=== PATIENT | female | born 1955 ===

== ENCOUNTER 2017-02-26 08:03 | Inpatient (IN) | payer OTHER ==
[~2017-02-26] VITALS: Ht 157.5 cm; Wt 72.2 kg
[~2017-02-26 08:03] MED LIST: AMOCLA875 PO; ATOR40TA PO; Bactrim Ds Tab1 EACH PO; CEPH500 PO; Cipro500 MG PO; Flagyl500 MG PO; LAVAP17G PO; LEVFLO500 PO; METR500 PO; Norco 5-325 Ta1 EACH PO; Norco 7.5-3251 EACH PO; Pyridium200 MG PO; Zofran Odt4 MG SL
[2017-02-26 08:57] LABS: Source, Urine Clean Catch
[2017-02-26 09:08] LABS: Bilirubin, Urine Neg (Neg); Blood, Urine 4+ (Neg); Glucose Qualitative, Urine Neg (Neg); Ketones, Urine 1+ (Neg); Leukocyte Esterase, Urine 3+ (Neg); Nitrite, Urine Pos (Neg); Protein, Urine 2+ (Neg); Specific Gravity, Urine 1.015 (1.003-1.022); Urobilinogen, Urine NORM (Normal)
[2017-02-26 09:23] LABS: Appearance, Urine Clear (Clear); Color, Urine Amber (P-Yellow)
[2017-02-26 09:38] LABS: White Blood Cells, Urine TNTC /hpf (0-5)
[2017-02-26 09:39] LABS: Bacteria Many /hpf; Squamous Epithelial Cells Few /hpf (Few)
[2017-02-26 09:46] LABS: BASOPHILS ABSOLUTE AUTO 0.03 K/mm3 (0.00-0.23); BASOPHILS PERCENT AUTO 0 % (0-2); EOSINOPHILS ABSOLUTE AUTO 0.02 K/mm3 (0.00-0.68); EOSINOPHILS PERCENT AUTO 0 % (0-6); Hematocrit 43.5 % (33.0-51.0); Hemoglobin 14.8 g/dL (11.5-16.0); IMMATURE GRAN ABSOLUTE AUTO 0.05 K/mm3 (0.00-0.10); IMMATURE GRAN PERCENT AUTO 0 % (0-1); LYMPHOCYTES ABSOLUTE AUTO 1.77 K/mm3 (0.84-5.20); LYMPHOCYTES PERCENT AUTO 13 % (21-46); MONOCYTES ABSOLUTE AUTO 1.88 K/mm3 (0.16-1.47); MONOCYTES PERCENT AUTO 14 % (4-13); Mean Corpuscular HGB 33.4 pg (26.0-34.0); Mean Corpuscular Volume 98 fL (80-100); Mean Platelet Volume 9.9 fL (9.1-12.4); NEUTROPHILS ABSOLUTE AUTO 9.92 K/mm3 (1.96-9.15); NEUTROPHILS PERCENT AUTO 73 % (41-73); Platelet Count 193 K/mm3 (150-400); RDW Coefficient Variation 13.3 % (11.7-14.2); Red Blood Cell Count 4.43 M/mm3 (3.80-5.20); White Blood Cell Count 13.67 K/mm3 (4.00-11.30)
[2017-02-26 09:58] LABS: Alanine Aminotransfer (ALT/SGP 30 U/L (12-78); Albumin, Blood 3.7 g/dL (3.4-5.0); Albumin/Globulin Ratio 0.8 (0.8-1.8); Alk Phos 87 U/L (50-136); Anion Gap 10 mmol/L (6-16); Aspartate Aminotrans (AST/SGOT 28 U/L (12-37); Bilirubin, Total 1.4 mg/dL (0.1-1.0); Blood Urea Nitrogen 8 mg/dL (8-24); Bun/Creatinine Ratio 15.7 (12.0-20.0); CO2, Blood 24 mmol/L (21-32); Calcium, Blood 8.5 mg/dL (8.5-10.1); Chloride, Blood 105 mmol/L (98-108); Creatinine, Blood 0.51 mg/dL (0.40-1.00); Globulin, Blood 4.7 g/dL (2.2-4.0); Glomerular Filtration Rate >60 (60-); Glucose, Blood 130 mg/dL (70-99); Potassium, Blood 3.4 mmol/L (3.5-5.5); Sodium, Blood 139 mmol/L (136-145); Total Protein, Blood 8.4 g/dL (6.4-8.2)
[2017-02-27 05:12] LABS: Hematocrit 41.1 % (33.0-51.0); Hemoglobin 13.6 g/dL (11.5-16.0); Mean Corpuscular HGB Conc 33.1 g/dL (31.5-36.5); Mean Corpuscular Volume 100 fL (80-100); Platelet Count 171 K/mm3 (150-400); RDW Coefficient Variation 13.7 % (11.7-14.2); RDW Standard Deviation 50.5 fL (35.1-46.3); Red Blood Cell Count 4.12 M/mm3 (3.80-5.20); White Blood Cell Count 10.81 K/mm3 (4.00-11.30)
[2017-02-27 05:47] LABS: Very Low Density Lipoprot Chol 30 mg/dL (6-32)
[2017-02-27 05:51] LABS: Anion Gap 7 mmol/L (6-16); Blood Urea Nitrogen 9 mg/dL (8-24); Bun/Creatinine Ratio 18.8 (12.0-20.0); CO2, Blood 23 mmol/L (21-32); Calcium, Blood 7.8 mg/dL (8.5-10.1); Chloride, Blood 109 mmol/L (98-108); Creatinine, Blood 0.48 mg/dL (0.40-1.00); Glomerular Filtration Rate >60 (60-); Glucose, Blood 116 mg/dL (70-99); HDL Cholesterol 32 mg/dL (>39); Potassium, Blood 3.8 mmol/L (3.5-5.5); Sodium, Blood 139 mmol/L (136-145); Triglycerides 150 mg/dL (30-160)
[2017-02-27 05:58] LABS: CHOL/HDL RATIO 5.5; Cholesterol 176 mg/dL (50-200); LDL/HDL RATIO 3.6; Low Density Lipoprotein Chol 114 mg/dL (0-110)
[2017-02-28 05:41] LABS: Hematocrit 39.4 % (33.0-51.0); Hemoglobin 13.3 g/dL (11.5-16.0); Mean Corpuscular HGB 33.4 pg (26.0-34.0); Mean Corpuscular HGB Conc 33.8 g/dL (31.5-36.5); Mean Corpuscular Volume 99 fL (80-100); Platelet Count 189 K/mm3 (150-400); RDW Coefficient Variation 13.3 % (11.7-14.2); RDW Standard Deviation 48.2 fL (35.1-46.3); Red Blood Cell Count 3.98 M/mm3 (3.80-5.20); White Blood Cell Count 7.21 K/mm3 (4.00-11.30)
[2017-02-28 06:01] LABS: Anion Gap 8 mmol/L (6-16); Blood Urea Nitrogen 8 mg/dL (8-24); Bun/Creatinine Ratio 19.4 (12.0-20.0); CO2, Blood 23 mmol/L (21-32); Calcium, Blood 8.5 mg/dL (8.5-10.1); Chloride, Blood 110 mmol/L (98-108); Creatinine, Blood 0.41 mg/dL (0.40-1.00); Glomerular Filtration Rate >60 (60-); Glucose, Blood 100 mg/dL (70-99); Potassium, Blood 3.8 mmol/L (3.5-5.5); Sodium, Blood 141 mmol/L (136-145)
[2017-03-01] MEDS ORDERED: GAVILAX17 GM PO (12:21)
[2017-03-01] MEDS ORDERED: CEFU500T30 PO (12:22)
[2017-03-01] MEDS ORDERED: IBUP400 PO (12:22)
[2017-03-01] MEDS ORDERED: ACIDOPHILUS1 EAC1 PO (12:23)
[2017-09-04] MEDS ORDERED: HYDR1TAB94 PO (10:24)
[2017-09-04] MEDS ORDERED: Metamucil Smooth1 EA PO (10:25)
[2017-10-24] MEDS ORDERED: Miralax17 GM PO (15:58)
[2017-11-05] MEDS ORDERED: METAMUCIL (13:12)
[2017-11-10] MEDS ORDERED: HYDR1TAB94 PO (11:40)
== END 2017-03-01 15:03 | disposition home or self-care (01) | DRG 872 ==
LOC: ER 08:03 → MEDS 13:50 → ENPENDDIS 03-01 10:00 → MEDS 03-01 15:03
PROVIDERS: Emergency Medicine; Internal Medicine
DX: A41.51 Sepsis due to Escherichia coli [E. coli] (principal); K76.0 Fatty (change of) liver, not elsewhere classified; N10 Acute pyelonephritis; E78.5 Hyperlipidemia, unspecified; K21.9 Gastro-esophageal reflux disease without esophagitis; K57.30 Diverticulosis of large intestine without perforation or abscess without bleeding; E87.6 Hypokalemia; Z85.3 Personal history of malignant neoplasm of breast; Z90.11 Acquired absence of right breast and nipple; Z86.010 Personal history of colon polyps
CPT/HCPCS: 36415; 74176; 80048; 80053; 80061; 81001; 83605; 83690; 85025; 85027; 87040; 87077; 87086; 87186; 96361; 96365; 96375; 99285; J0696; J1170; J1650; J1885; J2405; J7030

== ENCOUNTER 2017-03-13 09:45 | Emergency (ER) | payer OTHER ==
[~2017-03-13] VITALS: Ht 157.5 cm; Wt 72.6 kg
[~2017-03-13 09:45] MED LIST changes: +ACIDOPHILUS1 EAC1 PO; +CEFU500T30 PO; +GAVILAX17 GM PO; +IBUP400 PO
[2017-03-13 10:33] LABS: Source, Urine Clean Catch
[2017-03-13 10:36] LABS: Bilirubin, Urine Neg (Neg); Blood, Urine 1+ (Neg); Glucose Qualitative, Urine Neg (Neg); Ketones, Urine Neg (Neg); Leukocyte Esterase, Urine 1+ (Neg); Nitrite, Urine Neg (Neg); Protein, Urine 1+ (Neg); Urobilinogen, Urine NORM (Normal)
[2017-03-13 10:48] LABS: Appearance, Urine Clear (Clear); Color, Urine Yellow (P-Yellow)
[2017-03-13 10:51] LABS: Bacteria Not Seen /hpf; Calcium Oxalate Crystals Many /hpf; Red Blood Cells, Urine Not Seen /hpf (0-2); Squamous Epithelial Cells Few /hpf (Few); White Blood Cells, Urine 0-2 /hpf (0-5)
[2017-03-13 10:52] LABS: Mucus Light (0-Heavy)
[2017-03-13 11:17] LABS: BASOPHILS ABSOLUTE AUTO 0.06 K/mm3 (0.00-0.23); BASOPHILS PERCENT AUTO 1 % (0-2); EOSINOPHILS ABSOLUTE AUTO 0.17 K/mm3 (0.00-0.68); EOSINOPHILS PERCENT AUTO 3 % (0-6); Hematocrit 40.7 % (33.0-51.0); IMMATURE GRAN ABSOLUTE AUTO 0.02 K/mm3 (0.00-0.10); IMMATURE GRAN PERCENT AUTO 0 % (0-1); LYMPHOCYTES ABSOLUTE AUTO 2.08 K/mm3 (0.84-5.20); LYMPHOCYTES PERCENT AUTO 38 % (21-46); MONOCYTES PERCENT AUTO 9 % (4-13); Mean Corpuscular HGB 33.2 pg (26.0-34.0); Mean Corpuscular HGB Conc 34.4 g/dL (31.5-36.5); Mean Platelet Volume 9.4 fL (9.1-12.4); NEUTROPHILS ABSOLUTE AUTO 2.63 K/mm3 (1.96-9.15); NEUTROPHILS PERCENT AUTO 48 % (41-73); Platelet Count 261 K/mm3 (150-400); RDW Coefficient Variation 13.2 % (11.7-14.2); RDW Standard Deviation 47.2 fL (35.1-46.3); Red Blood Cell Count 4.22 M/mm3 (3.80-5.20); White Blood Cell Count 5.46 K/mm3 (4.00-11.30)
[2017-03-13 11:22] LABS: Mean Corpuscular Volume 96 fL (80-100)
[2017-03-13 11:39] LABS: Alanine Aminotransfer (ALT/SGP 60 U/L (12-78); Albumin, Blood 3.6 g/dL (3.4-5.0); Albumin/Globulin Ratio 0.8 (0.8-1.8); Alk Phos 119 U/L (50-136); Anion Gap 8 mmol/L (6-16); Aspartate Aminotrans (AST/SGOT 70 U/L (12-37); Bilirubin, Total 0.5 mg/dL (0.1-1.0); Blood Urea Nitrogen 11 mg/dL (8-24); Bun/Creatinine Ratio 24.2 (12.0-20.0); CO2, Blood 24 mmol/L (21-32); Calcium, Blood 8.8 mg/dL (8.5-10.1); Chloride, Blood 109 mmol/L (98-108); Creatinine, Blood 0.45 mg/dL (0.40-1.00); Globulin, Blood 4.5 g/dL (2.2-4.0); Glomerular Filtration Rate >60 (60-); Glucose, Blood 106 mg/dL (70-99); Potassium, Blood 3.7 mmol/L (3.5-5.5); Sodium, Blood 141 mmol/L (136-145); Total Protein, Blood 8.1 g/dL (6.4-8.2)
[2017-09-04] MEDS ORDERED: HYDR1TAB94 PO (10:24)
[2017-09-04] MEDS ORDERED: Metamucil Smooth1 EA PO (10:25)
[2017-10-24] MEDS ORDERED: Miralax17 GM PO (15:58)
[2017-11-05] MEDS ORDERED: METAMUCIL (13:12)
[2017-11-10] MEDS ORDERED: HYDR1TAB94 PO (11:40)
== END 2017-03-13 13:51 | disposition home or self-care (01) ==
LOC: ER 09:45
PROVIDERS: Emergency Medicine
DX: R10.32 Left lower quadrant pain (principal); R10.31 Right lower quadrant pain; E78.00 Pure hypercholesterolemia, unspecified
CPT/HCPCS: 36415; 74176; 80053; 81001; 83690; 85025; 87077; 87086; 87186; 99284

== ENCOUNTER 2017-04-02 11:26 | Day surgery (SDC) | payer OTHER ==
[~2017-04-02] VITALS: Ht 157.5 cm; Wt 72.6 kg
[2017-04-03 04:15] LABS: BASOPHILS ABSOLUTE AUTO 0.02 K/mm3 (0.00-0.23); BASOPHILS PERCENT AUTO 0 % (0-2); EOSINOPHILS PERCENT AUTO 0 % (0-6); Hematocrit 36.6 % (33.0-51.0); Hemoglobin 12.3 g/dL (11.5-16.0); IMMATURE GRAN ABSOLUTE AUTO 0.03 K/mm3 (0.00-0.10); IMMATURE GRAN PERCENT AUTO 0 % (0-1); LYMPHOCYTES ABSOLUTE AUTO 1.48 K/mm3 (0.84-5.20); LYMPHOCYTES PERCENT AUTO 17 % (21-46); MONOCYTES ABSOLUTE AUTO 0.65 K/mm3 (0.16-1.47); MONOCYTES PERCENT AUTO 7 % (4-13); Mean Corpuscular HGB 32.8 pg (26.0-34.0); Mean Corpuscular HGB Conc 33.6 g/dL (31.5-36.5); Mean Corpuscular Volume 98 fL (80-100); Mean Platelet Volume 10.4 fL (9.1-12.4); NEUTROPHILS ABSOLUTE AUTO 6.74 K/mm3 (1.96-9.15); NEUTROPHILS PERCENT AUTO 76 % (41-73); Platelet Count 210 K/mm3 (150-400); RDW Coefficient Variation 13.1 % (11.7-14.2); RDW Standard Deviation 46.8 fL (35.1-46.3); Red Blood Cell Count 3.75 M/mm3 (3.80-5.20); White Blood Cell Count 8.92 K/mm3 (4.00-11.30)
[2017-04-03 04:37] LABS: Anion Gap 8 mmol/L (6-16); Blood Urea Nitrogen 14 mg/dL (8-24); Bun/Creatinine Ratio 20.5 (12.0-20.0); CO2, Blood 25 mmol/L (21-32); Calcium, Blood 8.5 mg/dL (8.5-10.1); Chloride, Blood 106 mmol/L (98-108); Creatinine, Blood 0.68 mg/dL (0.40-1.00); Glomerular Filtration Rate >60 (60-); Glucose, Blood 138 mg/dL (70-99); Sodium, Blood 139 mmol/L (136-145)
[2017-04-03] MEDS ORDERED: ENOX40I SC (09:45)
[2017-04-03] MEDS ORDERED: OXYC5 PO (09:45)
[2017-04-03] MEDS ORDERED: PROM25 PO (09:46)
[2017-09-04] MEDS ORDERED: HYDR1TAB94 PO (10:24)
[2017-09-04] MEDS ORDERED: Metamucil Smooth1 EA PO (10:25)
[2017-10-24] MEDS ORDERED: Miralax17 GM PO (15:58)
[2017-11-05] MEDS ORDERED: METAMUCIL (13:12)
[2017-11-10] MEDS ORDERED: HYDR1TAB94 PO (11:40)
== END 2017-04-03 15:33 | disposition home or self-care (01) ==
LOC: PRE IP 11:26 → ORSCMMR 11:26 → SURS 11:26 → PRE IP 13:30 → EDSTATUS 16:30 → PRE IP 16:30 → SURS 17:11 → ORSCMMR 04-03 15:33
PROVIDERS: Orthopaedic Surgery
PROC: 0SRC0J9 Replacement of Right Knee Joint with Synthetic Substitute, Cemented, Open Approach (ICD-10-PCS; principal; 2017-04-02 13:30)
DX: M17.0 Bilateral primary osteoarthritis of knee (principal)
CPT/HCPCS: 36415; 73560-RT; 80048; 83735; 85025; 88300; 97110; 97116; 97161; 97530; C1713; C1776; G8978; G8979; J0171; J0690; J0735; J1100; J1650; J1885; J2250; J2405; J2795; J3010; J7120

== ENCOUNTER 2017-05-26 07:18 | Day surgery (SDC) | payer OTHER ==
[~2017-05-26] VITALS: Ht 157.5 cm; Wt 70.6 kg
[~2017-05-26 07:18] MED LIST changes: +ENOX40I SC; +OXYC5 PO; +PROM25 PO
== END 2017-05-26 11:51 | disposition home or self-care (01) ==
LOC: ORSCSDS 07:18
PROVIDERS: Orthopaedic Surgery
PROC: 0SSCXZZ Reposition Right Knee Joint, External Approach (ICD-10-PCS; principal; 2017-05-26 08:45)
DX: M25.661 Stiffness of right knee, not elsewhere classified (principal); I10 Essential (primary) hypertension; G47.33 Obstructive sleep apnea (adult) (pediatric); Z96.651 Presence of right artificial knee joint; Z79.899 Other long term (current) drug therapy
CPT/HCPCS: J0690; J1100; J1885; J2250; J2405; J3010; J7120

== ENCOUNTER 2017-09-08 10:47 | Emergency (ER) | payer OTHER ==
[~2017-09-08] VITALS: Ht 157.5 cm; Wt 72.6 kg
[~2017-09-08 10:47] MED LIST changes: +HYDR1TAB94 PO; +Metamucil Smooth1 EA PO
[2017-09-08 11:37] LABS: BASOPHILS ABSOLUTE AUTO 0.05 K/mm3 (0.00-0.23); BASOPHILS PERCENT AUTO 1 % (0-2); EOSINOPHILS ABSOLUTE AUTO 0.25 K/mm3 (0.00-0.68); EOSINOPHILS PERCENT AUTO 5 % (0-6); Hematocrit 42.4 % (33.0-51.0); Hemoglobin 14.4 g/dL (11.5-16.0); IMMATURE GRAN ABSOLUTE AUTO 0.01 K/mm3 (0.00-0.10); IMMATURE GRAN PERCENT AUTO 0 % (0-1); LYMPHOCYTES ABSOLUTE AUTO 2.27 K/mm3 (0.84-5.20); LYMPHOCYTES PERCENT AUTO 42 % (21-46); MONOCYTES ABSOLUTE AUTO 0.56 K/mm3 (0.16-1.47); MONOCYTES PERCENT AUTO 10 % (4-13); Mean Corpuscular HGB 32.4 pg (26.0-34.0); Mean Corpuscular Volume 96 fL (80-100); Mean Platelet Volume 9.3 fL (9.1-12.4); NEUTROPHILS ABSOLUTE AUTO 2.23 K/mm3 (1.96-9.15); NEUTROPHILS PERCENT AUTO 42 % (41-73); Platelet Count 243 K/mm3 (150-400); RDW Coefficient Variation 13.2 % (11.7-14.2); RDW Standard Deviation 47.1 fL (35.1-46.3); Red Blood Cell Count 4.44 M/mm3 (3.80-5.20); White Blood Cell Count 5.37 K/mm3 (4.00-11.30)
[2017-09-08 11:54] LABS: Alanine Aminotransfer (ALT/SGP 88 U/L (12-78); Albumin, Blood 3.7 g/dL (3.4-5.0); Albumin/Globulin Ratio 0.8 (0.8-1.8); Alk Phos 144 U/L (50-136); Anion Gap 9 mmol/L (6-16); Aspartate Aminotrans (AST/SGOT 113 U/L (12-37); Bilirubin, Total 0.6 mg/dL (0.1-1.0); Blood Urea Nitrogen 10 mg/dL (8-24); Bun/Creatinine Ratio 23.9 (12.0-20.0); CO2, Blood 24 mmol/L (21-32); Calcium, Blood 8.6 mg/dL (8.5-10.1); Chloride, Blood 108 mmol/L (98-108); Creatinine, Blood 0.42 mg/dL (0.40-1.00); Globulin, Blood 4.5 g/dL (2.2-4.0); Glomerular Filtration Rate >60 (60-); Glucose, Blood 119 mg/dL (70-99); Potassium, Blood 3.5 mmol/L (3.5-5.5); Sodium, Blood 141 mmol/L (136-145); Total Protein, Blood 8.2 g/dL (6.4-8.2); Troponin I <0.015 ng/mL (0.000-0.040)
== END 2017-09-08 13:14 | disposition home or self-care (01) ==
LOC: ER 10:47
PROVIDERS: Emergency Medicine
DX: R07.9 Chest pain, unspecified (principal); I10 Essential (primary) hypertension; E78.00 Pure hypercholesterolemia, unspecified
CPT/HCPCS: 36415; 71046; 80053; 83880; 84484; 85025; 93005; 93010; 99285-25

== ENCOUNTER 2017-10-02 10:51 | Inpatient (IN) | payer OTHER ==
[~2017-10-02] VITALS: Ht 157.5 cm; Wt 72.6 kg
[2017-10-03 04:46] LABS: BASOPHILS ABSOLUTE AUTO 0.01 K/mm3 (0.00-0.23); BASOPHILS PERCENT AUTO 0 % (0-2); EOSINOPHILS ABSOLUTE AUTO 0.01 K/mm3 (0.00-0.68); EOSINOPHILS PERCENT AUTO 0 % (0-6); Hematocrit 34.4 % (33.0-51.0); Hemoglobin 11.7 g/dL (11.5-16.0); IMMATURE GRAN ABSOLUTE AUTO 0.02 K/mm3 (0.00-0.10); IMMATURE GRAN PERCENT AUTO 0 % (0-1); LYMPHOCYTES ABSOLUTE AUTO 1.91 K/mm3 (0.84-5.20); LYMPHOCYTES PERCENT AUTO 19 % (21-46); MONOCYTES ABSOLUTE AUTO 0.63 K/mm3 (0.16-1.47); MONOCYTES PERCENT AUTO 6 % (4-13); Mean Corpuscular HGB 32.8 pg (26.0-34.0); Mean Corpuscular Volume 96 fL (80-100); Mean Platelet Volume 9.5 fL (9.1-12.4); NEUTROPHILS ABSOLUTE AUTO 7.46 K/mm3 (1.96-9.15); NEUTROPHILS PERCENT AUTO 74 % (41-73); Platelet Count 215 K/mm3 (150-400); RDW Coefficient Variation 12.9 % (11.7-14.2); RDW Standard Deviation 46.1 fL (35.1-46.3); Red Blood Cell Count 3.57 M/mm3 (3.80-5.20); White Blood Cell Count 10.04 K/mm3 (4.00-11.30)
[2017-10-03 05:07] LABS: Anion Gap 7 mmol/L (6-16); Blood Urea Nitrogen 10 mg/dL (8-24); Bun/Creatinine Ratio 15.9 (12.0-20.0); CO2, Blood 27 mmol/L (21-32); Calcium, Blood 8.6 mg/dL (8.5-10.1); Chloride, Blood 106 mmol/L (98-108); Creatinine, Blood 0.63 mg/dL (0.40-1.00); Glomerular Filtration Rate >60 (60-); Glucose, Blood 122 mg/dL (70-99); Magnesium, Blood 2.1 mg/dL (1.6-2.4); Potassium, Blood 4.5 mmol/L (3.5-5.5); Sodium, Blood 140 mmol/L (136-145)
[2017-10-04] MEDS ORDERED: ENOX40I SC (15:27)
[2017-10-04] MEDS ORDERED: Percocet 5-3251 EACH PO (15:28)
[2017-10-04] MEDS ORDERED: PROM25 PO (15:30)
[2017-10-04] MEDS ORDERED: ENOX30I (23:41)
== END 2017-10-04 16:00 | disposition home or self-care (01) | DRG 470 ==
LOC: ORSCMMR 10:51 → SURS 16:32 → ORSCMMR 16:33 → SURS 10-04 16:00
PROVIDERS: Orthopaedic Surgery
PROC: 0SRD0J9 Replacement of Left Knee Joint with Synthetic Substitute, Cemented, Open Approach (ICD-10-PCS; principal; 2017-10-02 12:30)
DX: M13.862 Other specified arthritis, left knee (principal); K21.9 Gastro-esophageal reflux disease without esophagitis; Z85.3 Personal history of malignant neoplasm of breast; Z96.651 Presence of right artificial knee joint; Z90.11 Acquired absence of right breast and nipple; Z85.41 Personal history of malignant neoplasm of cervix uteri; Z79.899 Other long term (current) drug therapy
CPT/HCPCS: 36415; 73560-LT; 80048; 83735; 85025; 88300; 97110; 97116; 97161; 97165; 97530; 97535; C1713; C1776; G8978; G8979; G8987; G8988; J0171; J0690; J0735; J1100; J1650; J1885; J2250; J2370; J2405; J2795; J3010; J3370; J7120; Q0163

== ENCOUNTER 2017-10-04 23:12 | Emergency (ER) | payer OTHER ==
[~2017-10-04] VITALS: Ht 157.5 cm; Wt 72.6 kg
[~2017-10-04 23:12] MED LIST changes: +Percocet 5-3251 EACH PO
[2017-10-04] MEDS ORDERED: ENOX30I (23:41)
== END 2017-10-05 03:12 | disposition home or self-care (01) ==
LOC: ER 23:12
DX: T78.49XA Other allergy, initial encounter (principal); R23.8 Other skin changes; I10 Essential (primary) hypertension; Z79.899 Other long term (current) drug therapy; Z96.652 Presence of left artificial knee joint
CPT/HCPCS: 99282

== ENCOUNTER 2017-11-03 07:07 | Day surgery (SDC) | payer MEDICARE, OTHER ==
[~2017-11-03 07:07] MED LIST changes: +ENOX30I; +Miralax17 GM PO
[2017-11-05] MEDS ORDERED: METAMUCIL (13:12)
== END 2017-11-03 22:38 | disposition home or self-care (01) ==
LOC: MOI US 07:07
PROC: BH01ZZZ Plain Radiography of Left Breast (ICD-10-PCS; principal; 2017-11-03)
DX: C50.912 Malignant neoplasm of unspecified site of left female breast (principal)
CPT/HCPCS: 19285; 77065

== ENCOUNTER → 2017-11-13 | Outpatient (CLI) | payer MEDICARE, OTHER ==
[~2017-11-13] MED LIST changes: +METAMUCIL
[2017-11-18 14:09] LABS: HPV 16 Negative (Negative); HPV 18 Negative (Negative); HPV OTHER HR TYPES Positive (Negative)
== END ==
LOC: LAB SHORT 11:06 → LAB 11:06
PROVIDERS: Nurse Practitioner Family
DX: Z12.4 Encounter for screening for malignant neoplasm of cervix (principal); D06.9 Carcinoma in situ of cervix, unspecified
CPT/HCPCS: 87624; 87625; G0145

== ENCOUNTER 2018-02-23 07:24 | Day surgery (SDC) | payer MEDICARE, OTHER ==
[~2018-02-23] VITALS: Ht 154.9 cm; Wt 71.7 kg
[~2018-02-23 07:24] MED LIST changes: +Eye Drops15 ML; -METAMUCIL; +METAMUCIL PO
[2018-02-23] MEDS ORDERED: LATANOPROST 0.7.5 ML BOTHEYES (08:33)
[2018-02-23] MEDS ORDERED: TIMO10T (08:33)
[2018-02-23] MEDS ORDERED: TIMOPTIC 0.5%1 EACH BOTHEYES ×2 (08:34→08:35)
--- NOTE | 2018-02-23 08:39 | NUR ---
History, Chart, Medications and Allergies reviewed before start of procedure. Patient confirms NPO status and agrees with scheduled surgery. at bedside.
--- NOTE | 2018-02-23 12:33 | NUR ---
PT ARRIVED 1155 PACU TO ROOM 216 VIA STRETCHER, IV INFUSING. ASHTON 500ML PEACH URINE. PT EYES CLOSED, AWAKENS EASILY, ANSWERS QUESTIONS APPROPRIATELY. DENIES PAIN OR NAUSEA. ORIENTED TO ROOM AND CALL LIGHT AND SET UP. SET UP SCD'S, HEATING PAD AND LR IV. VS STABLE. PT REQUESTING APPLE JUICE. TOLERATING CLEARS. NO DRAINAGE FROM BRUNO PAD, LAP INC WNL.
--- NOTE | 2018-02-23 16:52 | NUR ---
SUMM- PT A/O X3, RESTING IN BED WITH HEAT PAD. DENIED ANY PAIN AT REST. BT NORMOACTIVE, TOLERATING A GENERAL DIET. ASHTON PATENT AND DRAINING LIGHT TEA COLOR URINE. IVF INFUSING AT 125ML/HR. SCD'S IN USE. AT BEDSIDE MOST OF THE SHIFT, INVOLVED AND PLEASANT. LAP INC WITH CLEAR DRESSINGS, SCANT SS OOZE. SCANT VAG RUST COLORED ON BRUNO PAD. WILL ATTEMPT TO AMBULATE BEFORE DINNER.
--- NOTE | 2018-02-23 20:15 | NUR ---
2015: PT AMBULATES LENGTH OF HALLWAY WITH 1 PERSON GB ASSIST AND FWW WITH SPOUSE @ SIDE; TOW. PT REPOSITIONS IN CHAIR AND CALL LIGHT PLACED IN REACH.
[2018-02-24 05:26] LABS: BASOPHILS ABSOLUTE AUTO 0.03 K/mm3 (0.00-0.23); BASOPHILS PERCENT AUTO 0 % (0-2); EOSINOPHILS ABSOLUTE AUTO 0.01 K/mm3 (0.00-0.68); EOSINOPHILS PERCENT AUTO 0 % (0-6); Hematocrit 35.4 % (33.0-51.0); Hemoglobin 12.1 g/dL (11.5-16.0); IMMATURE GRAN ABSOLUTE AUTO 0.02 K/mm3 (0.00-0.10); IMMATURE GRAN PERCENT AUTO 0 % (0-1); LYMPHOCYTES ABSOLUTE AUTO 2.49 K/mm3 (0.84-5.20); LYMPHOCYTES PERCENT AUTO 24 % (21-46); MONOCYTES ABSOLUTE AUTO 0.91 K/mm3 (0.16-1.47); MONOCYTES PERCENT AUTO 9 % (4-13); Mean Corpuscular HGB 33.1 pg (26.0-34.0); Mean Corpuscular HGB Conc 34.2 g/dL (31.5-36.5); Mean Corpuscular Volume 97 fL (80-100); Mean Platelet Volume 9.6 fL (9.1-12.4); NEUTROPHILS ABSOLUTE AUTO 6.89 K/mm3 (1.96-9.15); NEUTROPHILS PERCENT AUTO 67 % (41-73); Platelet Count 216 K/mm3 (150-400); RDW Coefficient Variation 12.8 % (11.7-14.2); RDW Standard Deviation 45.8 fL (35.1-46.3); Red Blood Cell Count 3.66 M/mm3 (3.80-5.20); White Blood Cell Count 10.35 K/mm3 (4.00-11.30)
--- NOTE | 2018-02-24 06:51 | NUR ---
SUMMARY: POD [address] MAL SILVA. VSS, AFEBRILE, ROOM AIR AND AMBULATING HALLS @ HS. PT PAIN CONTROLLED WITH 2 TABS PERCOCET X3 THIS SHIFT AND IV TORDAL. PT ASHTON DC'D THIS AM AND VOID. BOWEL TONES PRESENT, TOLERATING REG DIET AND NOT YET PASSING FLATUS.
--- NOTE | 2018-02-24 07:45 | NUR ---
dr morales to round on pt.
[2018-02-24] MEDS ORDERED: IBUP800 PO (08:44)
[2018-02-24] MEDS ORDERED: DOCU100 PO (08:44)
[2018-02-24] MEDS ORDERED: ACET325 PO (08:44)
[2018-02-24] MEDS ORDERED: Percocet 5-3251 EACH PO (08:44)
--- NOTE | 2018-02-24 14:10 | NUR ---
provided pt with discharge teaching, printed materials, written prescriptions. peripheral IV removed wnl. pt escorted to awaiting vehicle via wheelchair, carrying pt's belongings.
== END 2018-02-24 14:26 | disposition home or self-care (01) ==
LOC: ORSCMMR 07:24 → ORD 09:00 → ORSCMMR 09:00 → SURS 12:06 → ORSCMMR 02-24 14:26
PROVIDERS: Obstetrics & Gynecology
PROC: 0UT2FZZ Resection of Bilateral Ovaries, Via Natural or Artificial Opening With Percutaneous Endoscopic Assistance (ICD-10-PCS; principal; 2018-02-23 09:00)
PROC: 0UT9FZZ Resection of Uterus, Via Natural or Artificial Opening With Percutaneous Endoscopic Assistance (ICD-10-PCS; principal; 2018-02-23 09:00)
PROC: 0UT7FZZ Resection of Bilateral Fallopian Tubes, Via Natural or Artificial Opening With Percutaneous Endoscopic Assistance (ICD-10-PCS; principal; 2018-02-23 09:00)
DX: D06.9 Carcinoma in situ of cervix, unspecified (principal); N83.292 Other ovarian cyst, left side; R10.2 Pelvic and perineal pain; D25.9 Leiomyoma of uterus, unspecified; R73.03 Prediabetes; K21.9 Gastro-esophageal reflux disease without esophagitis; H40.9 Unspecified glaucoma; Z79.899 Other long term (current) drug therapy
CPT/HCPCS: 36415; 85025; 88307; J0690; J1100; J1885; J2250; J2370; J2405; J2710; J3010; J7120

== ENCOUNTER 2018-06-17 09:18 | Day surgery (SDC) | payer MEDICARE, OTHER ==
[~2018-06-17] VITALS: Ht 157.5 cm; Wt 68.6 kg
[~2018-06-17 09:18] MED LIST changes: +ACET325 PO; +DOCU100 PO; +IBUP800 PO; +LATANOPROST 0.7.5 ML BOTHEYES; +TIMO10T; +TIMOPTIC 0.5%1 EACH BOTHEYES
[2018-06-17] MEDS ORDERED: PRED20 (10:06)
--- NOTE | 2018-06-17 10:15 | NUR ---
06/17/18 1015 Kathy Braun FIRST IV ATTEMPT LEFT HAND INFILTRATED.
--- NOTE | 2018-06-17 10:51 | NUR ---
06/17/18 1051 Deborah Perkins HAIR CLIPPED IN PRE OP WITH INJECTION OF LOCAL
== END 2018-06-17 11:49 | disposition home or self-care (01) ==
LOC: ORSCSDS 09:18
PROVIDERS: Otolaryngology
PROC: 03BT0ZX Excision of Left Temporal Artery, Open Approach, Diagnostic (ICD-10-PCS; principal; 2018-06-17 11:15)
DX: M31.6 Other giant cell arteritis (principal); I10 Essential (primary) hypertension
CPT/HCPCS: 88305; 88313; 93005; 93010; J1100; J2250; J3010; J7120

== ENCOUNTER → 2018-07-06 | Outpatient (CLI) | payer MEDICARE, OTHER ==
[~2018-07-06] MED LIST changes: +PRED20
== END | disposition home or self-care (01) ==
LOC: LAB SHORT 10:27 → LAB EV 10:27
DX: R10.2 Pelvic and perineal pain (principal)
CPT/HCPCS: 87070; 87205

== ENCOUNTER → 2018-07-08 | Outpatient (CLI) | payer MEDICARE, OTHER | END | disposition home or self-care (01) | LOC: LAB SHORT 11:16 → LAB 11:16 | DX: N90.89 Other specified noninflammatory disorders of vulva and perineum (principal) | CPT/HCPCS: 87529 ==

== ENCOUNTER 2018-09-07 16:12 | Emergency (ER) | payer MEDICARE, OTHER ==
[~2018-09-07] VITALS: Ht 157.5 cm; Wt 68.0 kg
[2018-09-07 16:37] LABS: BASOPHILS ABSOLUTE AUTO 0.07 K/mm3 (0.00-0.23); BASOPHILS PERCENT AUTO 1 % (0-2); EOSINOPHILS ABSOLUTE AUTO 0.26 K/mm3 (0.00-0.68); EOSINOPHILS PERCENT AUTO 4 % (0-6); Hematocrit 40.4 % (33.0-51.0); Hemoglobin 14.1 g/dL (11.5-16.0); IMMATURE GRAN ABSOLUTE AUTO 0.02 K/mm3 (0.00-0.10); IMMATURE GRAN PERCENT AUTO 0 % (0-1); LYMPHOCYTES PERCENT AUTO 38 % (21-46); MONOCYTES PERCENT AUTO 7 % (4-13); Mean Corpuscular HGB 33.8 pg (26.0-34.0); Mean Corpuscular HGB Conc 34.9 g/dL (31.5-36.5); Mean Corpuscular Volume 97 fL (80-100); Mean Platelet Volume 9.3 fL (9.1-12.4); NEUTROPHILS PERCENT AUTO 50 % (41-73); Platelet Count 286 K/mm3 (150-400); RDW Coefficient Variation 12.2 % (11.7-14.2); RDW Standard Deviation 43.8 fL (35.1-46.3); Red Blood Cell Count 4.17 M/mm3 (3.80-5.20); White Blood Cell Count 7.35 K/mm3 (4.00-11.30)
[2018-09-07 17:00] LABS: Alanine Aminotransfer (ALT/SGP 37 U/L (12-78); Alk Phos 134 U/L (50-136); Anion Gap 7 mmol/L (6-16); Aspartate Aminotrans (AST/SGOT 48 U/L (12-37); Bilirubin, Total 0.6 mg/dL (0.1-1.0); Blood Urea Nitrogen 11 mg/dL (8-24); Bun/Creatinine Ratio 19.5 (12.0-20.0); CO2, Blood 25 mmol/L (21-32); Calcium, Blood 9.3 mg/dL (8.5-10.1); Chloride, Blood 106 mmol/L (98-108); Creatinine, Blood 0.56 mg/dL (0.40-1.00); Globulin, Blood 4.1 g/dL (2.2-4.0); Glomerular Filtration Rate >60 (60-); Glucose, Blood 133 mg/dL (70-99); Potassium, Blood 3.2 mmol/L (3.5-5.5); Sodium, Blood 138 mmol/L (136-145); Total Protein, Blood 8.1 g/dL (6.4-8.2)
[2018-09-07 17:00] LABS: Source, Urine Clean Catch
[2018-09-07 17:07] LABS: Bilirubin, Urine Neg (Neg); Blood, Urine 2+ (Neg); Glucose Qualitative, Urine Neg (Neg); Ketones, Urine 1+ (Neg); Leukocyte Esterase, Urine Neg (Neg); Nitrite, Urine Neg (Neg); Protein, Urine 2+ (Neg); Specific Gravity, Urine 1.025 (1.003-1.022); Urobilinogen, Urine NORM (Normal)
[2018-09-07 17:23] LABS: Appearance, Urine Clear (Clear); Color, Urine Yellow (P-Yellow)
[2018-09-07 17:25] LABS: Bacteria Few /hpf; Mucus Mod (0-Heavy); Squamous Epithelial Cells Mod /hpf (Few)
[2018-09-07] MEDS ORDERED: Magnesium Citr296 ML PO (18:29)
[2018-09-07] MEDS ORDERED: Colace100 MG PO (18:29)
== END 2018-09-07 18:57 | disposition home or self-care (01) ==
LOC: ER 16:12
PROVIDERS: Physician Assistant
DX: K59.00 Constipation, unspecified (principal); E87.6 Hypokalemia; Z91.040 Latex allergy status; Z79.899 Other long term (current) drug therapy
CPT/HCPCS: 36415; 74176; 80053; 81001; 83690; 85025; 99284-25

== ENCOUNTER 2019-03-18 12:24 | Emergency (ER) | payer MEDICARE, OTHER ==
[~2019-03-18] VITALS: Ht 157.5 cm; Wt 69.4 kg
[~2019-03-18 12:24] MED LIST changes: +Colace100 MG PO; +Magnesium Citr296 ML PO
[2019-03-18 13:10] LABS: BASOPHILS ABSOLUTE AUTO 0.04 K/mm3 (0.00-0.23); BASOPHILS PERCENT AUTO 1 % (0-2); EOSINOPHILS ABSOLUTE AUTO 0.18 K/mm3 (0.00-0.68); EOSINOPHILS PERCENT AUTO 3 % (0-6); Hematocrit 42.5 % (33.0-51.0); Hemoglobin 14.2 g/dL (11.5-16.0); IMMATURE GRAN ABSOLUTE AUTO 0.01 K/mm3 (0.00-0.10); IMMATURE GRAN PERCENT AUTO 0 % (0-1); LYMPHOCYTES ABSOLUTE AUTO 2.07 K/mm3 (0.84-5.20); LYMPHOCYTES PERCENT AUTO 37 % (21-46); MONOCYTES PERCENT AUTO 7 % (4-13); Mean Corpuscular HGB 32.6 pg (26.0-34.0); Mean Corpuscular HGB Conc 33.4 g/dL (31.5-36.5); Mean Corpuscular Volume 98 fL (80-100); Mean Platelet Volume 9.9 fL (9.1-12.4); NEUTROPHILS ABSOLUTE AUTO 2.85 K/mm3 (1.96-9.15); NEUTROPHILS PERCENT AUTO 51 % (41-73); Platelet Count 230 K/mm3 (150-400); RDW Coefficient Variation 12.8 % (11.7-14.2); RDW Standard Deviation 45.9 fL (35.1-46.3); Red Blood Cell Count 4.35 M/mm3 (3.80-5.20); White Blood Cell Count 5.55 K/mm3 (4.00-11.30)
[2019-03-18 13:22] LABS: Source, Urine Clean Catch
[2019-03-18 13:39] LABS: Alanine Aminotransfer (ALT/SGP 20 U/L (12-78); Albumin, Blood 3.7 g/dL (3.4-5.0); Albumin/Globulin Ratio 0.9 (0.8-1.8); Alk Phos 122 U/L (50-136); Anion Gap 8 mmol/L (6-16); Aspartate Aminotrans (AST/SGOT 18 U/L (12-37); Bilirubin, Total 0.5 mg/dL (0.1-1.0); Blood Urea Nitrogen 16 mg/dL (8-24); Bun/Creatinine Ratio 30.9 (12.0-20.0); CO2, Blood 25 mmol/L (21-32); Chloride, Blood 107 mmol/L (98-108); Creatinine, Blood 0.52 mg/dL (0.40-1.00); Globulin, Blood 4.3 g/dL (2.2-4.0); Glomerular Filtration Rate >60 (60-); Glucose, Blood 151 mg/dL (70-99); Potassium, Blood 3.6 mmol/L (3.5-5.5); Sodium, Blood 140 mmol/L (136-145)
[2019-03-18 13:39] LABS: Bilirubin, Urine Neg (Neg); Blood, Urine 1+ (Neg); Glucose Qualitative, Urine Neg (Neg); Ketones, Urine Neg (Neg); Leukocyte Esterase, Urine Neg (Neg); Nitrite, Urine Neg (Neg); Protein, Urine Neg (Neg); Specific Gravity, Urine 1.015 (1.003-1.022); Urobilinogen, Urine NORM (Normal)
[2019-03-18 13:42] LABS: Appearance, Urine Clear (Clear); Color, Urine Yellow (P-Yellow)
[2019-03-18 13:55] LABS: Bacteria Mod /hpf; Red Blood Cells, Urine 0-2 /hpf (0-2); Squamous Epithelial Cells Mod /hpf (Few); White Blood Cells, Urine 0-2 /hpf (0-5)
[2019-03-18] MEDS ORDERED: Augmentin 875-1 EACH PO (18:03)
[2019-03-18] MEDS ORDERED: ONDA4ODT MM (18:03)
[2019-03-18] MEDS ORDERED: Norco 5-325 Ta1 EACH PO (18:51)
== END 2019-03-18 18:55 | disposition home or self-care (01) ==
LOC: ER 12:24
PROVIDERS: Physician Assistant
DX: K57.32 Diverticulitis of large intestine without perforation or abscess without bleeding (principal); K76.0 Fatty (change of) liver, not elsewhere classified; Z91.040 Latex allergy status
CPT/HCPCS: 36415; 74177; 80053; 81001; 83690; 85025; 87086; 96361; 96374-59; 99284-25; A9270-GY; J2405; J7030; Q9967

== ENCOUNTER 2019-07-23 10:47 | Day surgery (SDC) | payer MEDICARE, OTHER ==
[~2019-07-23 10:47] MED LIST changes: +Augmentin 875-1 EACH PO; +ONDA4ODT MM
[2019-07-23 12:33] LABS: WBC Count, Synovial Fluid 8 /mm3 (0-180)
[2019-07-23 13:23] LABS: RBC Count, Synovial Fluid 68 /mm3 (0-0)
[2019-07-23 13:39] LABS: Lymphs, Synovial Fluid 67 % (0-15); Monocytes/Macrophages, Synovia 20 % (0-65); Neutrophils, Synovial Fluid 13 % (0-24)
[2019-07-23 13:40] LABS: Appearance, Synovial Fluid Clear (Clear); Color, Synovial Fluid Colorless (None-P Yel)
== END 2019-07-23 23:16 | disposition home or self-care (01) ==
LOC: RAD 10:47
PROVIDERS: Orthopaedic Surgery
DX: Z47.1 Aftercare following joint replacement surgery (principal); Z96.652 Presence of left artificial knee joint
CPT/HCPCS: 20610; 77002; 89051; Q9967

== ENCOUNTER → 2020-03-21 | Outpatient (CLI) | payer MEDICARE, OTHER ==
[2020-03-23 13:08] LABS: HPV 16 Negative (Negative); HPV 18 Negative (Negative); HPV OTHER HR TYPES Positive (Negative)
== END ==
LOC: LAB 10:20 → LAB SHORT 10:20
PROVIDERS: Student in an Organized Health Care Education/Training Program
DX: Z01.419 Encounter for gynecological examination (general) (routine) without abnormal findings (principal)
CPT/HCPCS: 87624; 87625; G0145

== ENCOUNTER → 2020-07-20 | Outpatient (CLI) | payer MEDICARE, OTHER | END | disposition home or self-care (01) | LOC: LAB SHORT 16:43 → LAB EV 16:43 | DX: N39.0 Urinary tract infection, site not specified (principal) | CPT/HCPCS: 87077; 87086; 87186 ==

== ENCOUNTER → 2021-04-16 | Outpatient (CLI) | payer MEDICARE, OTHER ==
[2021-04-18 12:10] LABS: HPV 16 Negative (Negative); HPV 18 Negative (Negative); HPV OTHER HR TYPES Positive (Negative)
== END | disposition home or self-care (01) ==
LOC: LAB SHORT 17:33 → LAB 17:33
PROVIDERS: Obstetrics & Gynecology
DX: Z01.419 Encounter for gynecological examination (general) (routine) without abnormal findings (principal)
CPT/HCPCS: 87624; 87625; G0123

== ENCOUNTER → 2022-08-01 | Outpatient (CLI) | payer MEDICARE, OTHER | END | disposition home or self-care (01) | LOC: LAB SHORT 17:52 → LAB 17:52 | DX: R10.32 Left lower quadrant pain (principal) | CPT/HCPCS: 87086 ==

== ENCOUNTER → 2024-03-06 | Outpatient (CLI) | payer MEDICARE, OTHER | END | disposition home or self-care (01) | LOC: LAB SHORT 18:40 → LAB 18:40 | DX: L03.119 Cellulitis of unspecified part of limb (principal); L02.519 Cutaneous abscess of unspecified hand | CPT/HCPCS: 87070; 87075; 87205 ==